=== PATIENT | male | born 1990 | race Caucasian/White ===

== ENCOUNTER 2021-11-13 11:19 | Inpatient (IN) | payer MEDICAID, SELFPAY ==
[2021-11-13] VITALS (13 sets, daily range): BP systolic 124–158; BP diastolic 73–98; PULSE 85–110; RESP 15–22; TEMP 36.6–36.8; O2SAT 93–99; BMI 36.0
--- NOTE | ~2021-11-13 | XR_ITS ---
EXAMINATION: XR chest 1V portable DATE: 11/13/2021 12:27 INDICATION: Weakness. TECHNIQUE: A single frontal view of the chest was obtained on 2 radiographs. COMPARISON: None. FINDINGS: The chest demonstrates clear lungs without pneumonia, pleural effusion, or pneumothorax. Th e heart size is normal. IMPRESSION: 1. No acute cardiopulmonary disease. Reviewed, dictated and finalized at location A.
[2021-11-13 11:25] LABS: Glucose Point of Care > 500 mg/dl (65-105)
--- NOTE | 2021-11-13 11:32 | ECG_ITS ---
Measurements Intervals We[place]ert Rate: 100 P: 56 MA: 157 QRS: 80 QRSD: 90 T: 35 QT: 337 QTc: 435 Interpretive Statements SINUS TACHYCARDIA BASELINE ARTIFACT- I, II, AVR, AVL, AVF, V1 BORDERLINE ECG Electronically Signed On 11-13-2021 12:14:40 CDT by Job Zaragoza D.O.
[2021-11-13 11:46] LABS: Basophils Absolute Auto 0.1 K/mm3 (0.0-0.1); Basophils Percent Auto 0.3 % (0.2-1.2); Eosinophils Percent Auto 0.1 % (0-4.4); Hematocrit 51.6 % (42.0-52.0); Hemoglobin 17.6 g/dL (14.0-18.0); Immature Granulocyte Absolute 0.19 K/mm3 (0.00-0.031); Lymphocytes Absolute Auto 3.13 K/mm3 (0.9-3.2); Lymphocytes Percent Auto 16.2 % (18.3-44.2); Mean Corpuscular HGB Conc 34.1 g/dl (32-36); Mean Corpuscular Hemoglobin 29.3 pg (26-34); Mean Corpuscular Volume 85.9 fl (80-100); Mean Platelet Volume 11.7 fl (7.4-10.4); Monocytes Absolute Auto 0.8 K/mm3 (0.1-0.6); Monocytes Percent Auto 3.9 % (2.6-8.5); Neutrophils Absolute Auto 15.2 K/mm3 (1.3-6.7); Neutrophils Percent Auto 78.5 % (45.5-73.1); Platelet Count Result 360 k/mm3 (150-375); Red Blood Count 6.01 M/mm3 (4.6-6.20); Red Cell Distribution Width 14.1 % (11.5-14.5); White Blood Count 19.3 K/mm3 (4.5-10.0)
--- NOTE | 2021-11-13 11:51 | ED.GENADULT ---
HPI - General Adult General Chief complaint: Unspecified Stated complaint: dry mouth, confusion, increased urination Time Seen by Provider: 11/13/21 11:36 Source: patient, family and RN notes reviewed Mode of arrival: ambulatory Limitations: no limitations History of Present Illness HPI narrative: This is a 31 year old male who presents for evaluation of frequent urination and dry mouth. He told triage that his has been dealing with dry mouth and increased urinary for several weeks. He states his mouth has been so dry over the past 2 days that he can barely talk. He reports increased thirst. He denies history of diabetes but he has not seen provider in several years. His blood sugar was found to be extremely high in triage. He reports having nausea and emesis x 1 yesterday. He has been eating popsicles and apple sauce for past 2 days due to difficulty swallowing due to dry mouth. He denies fever, chills, abdominal pain, diarrhea or chest pain. Related Data Home Medications Medication Instructions Recorded Confirmed No Home Medications 11/13/21 11/13/21 Allergies Allergy/AdvReac Type Severity Reaction Status Date / Time No Known Allergies Allergy Verified 11/13/21 11:23 Review of Systems Review of Systems: All systems reviewed & are unremarkable except as noted in HPI and below Constitutional: Constitutional: Denies body ache(s), Denies chills, Denies fever(s) and Reports malaise ENT: Denies dizziness and Reports dry mouth Gastrointestinal: Gastrointestinal: Denies abdominal pain, Reports nausea and Reports vomiting Musculoskeletal: Musculoskeletal: Reports no additional musculoskeletal complaints Integumentary/Breasts: Skin/Breast: Denies erythema and Denies sores Endocrine: Endocrine: Reports fatigue, Reports polydipsia and Reports polyuria PMFSH Past Medical History Medical History Patient denies medical problems Surgical History Surgical History History of knee surgery Family History Family History (Updated 11/13/21 @ 14:16 by Edilma Grimm, ROBINA) Sibling Asthma Mother Asthma Grandparent Prostate carcinoma Father Lung cancer Social History Social History (Updated 11/13/21 @ 14:18 by Rosette Wilkerson PA-C) Social History: Surrogate decision maker: Code status: Full code. Smoking packs per day: 1.5 Smoking cigarettes per day: 30.0 Years smoked: 20 Smoking pack-years: 30.00 Smoking status: Current every day smoker Tobacco type: cigarettes Alcohol intake: current Alcohol use details: Occasional alcohol use. Substance use: current Substance use type: marijuana Spiritual care concerns: No Exam Const: General: cooperative, no acute distress and ill appearing Nutritional Appearance: obese Orientation/consciousness: patient oriented x3 HENMT: Head: normocephalic and atraumatic Face and sinus: face symmetric Mouth: Yes lip normal and Yes dry mucous membranes Throat: uvula midline Eyes: General: appearance normal, both eyes and all related structures Chest: Chest palpation & inspection: normal inspection of the chest Resp: Effort & Inspection: normal respiratory effort and able to speak in complete sentences Auscultation: clear to auscultation bilaterally and no crackles Cardio: Jugular venous distension: no JVD Rate: regular rate Rhythm: regular rhythm Peripheral pulses: Peripheral pulses 2+ throughout GI: Inspection: distended and obesity GI Palp: Yes Soft to palpation, No Tenderness to palpation present (GI), No Guarding due to palpation present (GI) and No Rigid due to palpation Auscultation: normal bowel sounds : Penis: Yes circumcised Skin: General skin exam: normal color and no rashes or lesions noted Neuro: General: patient oriented x3 and moves all extremities Cranial nerves: Yes CN's II-XII intact bilaterally Extre
[2021-11-13] MEDS: ONDANSETRON INJ 4 MG/2 ML VIAL IV PUSH (11:57)
[2021-11-13] MEDS: SODIUM CHLORIDE 0.9% IV 1,000 ML 999 ML IV CONT ×3 (11:58→12:31)
[2021-11-13 12:06] LABS: Appearance Urine Clear (Clear); Bilirubin Urine Negative (Negative); Glucose Urine UA 2+ mg/dL (Negative); Ketones Urine 3+ mg/dL (Negative); Leukocyte Esterase Ur Negative LEU/UL (Negative); Nitrate Urine Negative (Negative); Protein Urine Negative (Negative); Urobilinogen Urine 0.2 mg/dL (<2.0); pH Urine 5.5 (5.0-9.0)
[2021-11-13 12:12] LABS: Alanine Aminotransferase 62 U/L (6-50); Albumin Level 4.8 g/dL (3.5-5.1); Alkaline Phosphatase 159 U/L (38-126); Anion Gap 26 mmol/L (8-16); Aspartate Amino Transferase 44 U/L (17-59); Bilirubin,Total 0.6 mg/dL (0.2-1.3); Blood Urea Nitrogen 22 mg/dL (9-20); Calcium 9.6 mg/dL (8.4-10.2); Carbon Dioxide 13 mmol/L (22-30); Chloride 94 mmol/L (98-107); Estimated CRCL calculation 136 ml/min; Estimated Glomerular Filt Rate > 60; Glucose 1151 mg/dL (65-110); Potassium 5.2 mmol/L (3.4-5.0); Sodium 133 mmol/L (137-145)
[2021-11-13 12:20] LABS: RBC Urine 0-2 /hpf (0-2); Squamous Epithelial Cell Urine Rare /hpf (Few); WBC Urine 0-3 /hpf
[2021-11-13 12:22] LABS: Alveolar/Arterial O2 Gradient 26.7 mmHg; Base Excess ABG -12.1 mEq/l (+/-2.0); Carboxyhemoglobin 3.2 % THb (0-2.0); Fractional Inspired Oxygen 21 %; HCO3 ABG 12.7 mEq/l (22.0-26.0); Methemoglobin ABG 0.5 %THb (0-1.5); Oxygen Content ABG 22.7 %vol (16.0-22.0); Oxygen Saturation ABG 96.1 % (95.0-100.0); Oxyhemoglobin 92.6 % THb (90.0-100.0); PCO2 ABG 27.5 mmHg (35.0-45.0); PO2 ABG 90.1 mmHg (80.0-100.0); PO2 FiO2 Ratio Arterial Blood 4.29 %; Reduced Hemoglobin 3.7 %THb (0-5.0); Total Hemoglobin 17.4 g/dL (12.0-18.0)
[2021-11-13 12:24] LABS: Lipase 88 U/L (23-300); Magnesium 2.5 mg/dL (1.6-2.3); Phosphorus 7.8 mg/dL (2.5-4.5)
[2021-11-13 12:26] LABS: Modified Allen's Test Pass; Site Drawn LEFT RADIAL; pH ABG 7.281 (7.350-7.450)
[2021-11-13 12:26] LABS: Add Urine Microscopic? YES; Blood Urine Trace-Intact (Negative); Color Urine Light Yellow (Yellow)
[2021-11-13] MEDS: INSULIN HUMAN REGULAR (*BKC) 100 UNITS/ML 13 UNITS IV PUSH (12:31)
[2021-11-13] MEDS: INSULIN HUMAN REGULAR (*BKC) 100 UNITS in SODIUM CHLORIDE 0.9% IV 99 ML 21.8 UNITS IV CONT (12:38)
[2021-11-13 12:48] LABS: Hemoglobin A1C 13.1 % (<5.7)
[2021-11-13 12:56] LABS: Glucose Point of Care > 500 mg/dl (65-105)
[2021-11-13 12:58] LABS: Beta-Hydroxybutyrate/Acetoacetate 7.49 mmol/L (0.02-0.27)
--- NOTE | 2021-11-13 13:22 | WPDCNINT ---
Assessment and Plan Assessment and plan (1) DKA (diabetic ketoacidosis): Code(s): E11.10 - Type 2 diabetes mellitus with ketoacidosis without coma Status: Acute Assessment and Plan: Patient presented with blood glucose of 1151, HbA1c of 13.1 beta hydroxybutyrate of 7.49 IVF bolus and infusion Patient started on Insulin infusion and Q1H glucose monitoring Serial labs ordered Replace electrolytes as needed Since patient denies any abdominal pain nausea vomiting at this time I will start him on clear liquid diet and advance as tolerated to diabetic (2) Leukocytosis: Code(s): D72.829 - Elevated white blood cell count, unspecified Status: Acute Assessment and Plan: Likely secondary to stress response from DKA UA and chest x-ray negative Monitor (3) Hyperkalemia: Code(s): E87.5 - Hyperkalemia Status: Acute Assessment and Plan: Secondary to dehydration and acidosis Repeat BMP ordered Additional Plan DVT prophylaxis -SCDs Code Status - Full Code Rn Angiography Consult Note Consult date: 11/13/21 Reason for consult: DKA HPI: Pepe Salguero is a 31 year old male presented with chief complaint of excessive thirst and confusion and was told by his friends that this may be a sign of diabetes. Was started around 2-3 days ago and was associated with excessive thirst dry mouth polydipsia polyuria and poor appetite. No abdominal pain nausea vomiting. No chest pain shortness of breath or cough. No Dysuria hematuria hematemesis or melena. He felt weak and tired. He denies any blurred vision. Review system was also positive for chronic knee pain in both knees and back pain from back injury many years ago. In ED patient was found to be having elevated blood sugar, white count, beta hydroxybutyrate and potassium. Patient was diagnosed with DKA. He was given IV fluid bolus and started on IV fluids and IV insulin. Now admitted to ICU for further evaluation management. Patient states that he is feeling better as compared to presentation but no other new complaints at this time. Review of Systems Review of Systems: As per HPI All systems reviewed & are unremarkable except as noted in HPI and below PMFSH Past Medical History Medical History Patient denies medical problems Surgical History Surgical History History of knee surgery Family History Family History (Updated 11/13/21 @ 14:16 by Edilma Grimm RN) Sibling Asthma Mother Asthma Grandparent Prostate carcinoma Father Lung cancer Social History Social History Smoking packs per day: 0.25 Smoking cigarettes per day: 5.0 Years smoked: 20 Smoking pack-years: 5.00 Smoking status: Current every day smoker Tobacco type: cigarettes Additional smoking assessment comments: was smoking 1.5 PPD up until a few days ago Alcohol intake: current Alcohol use details: occasionally Substance use: current Substance use type: marijuana Spiritual care concerns: No Meds Home Medications and Allergies Home Medications Medication Instructions Recorded Confirmed Type No Home Medications 11/13/21 11/13/21 History Allergies Allergy/AdvReac Type Severity Reaction Status Date / Time No Known Allergies Allergy Verified 11/13/21 11:23 Vital Signs Vital Signs - 24 hr 11/13/21 11:21 11/13/21 11:31 11/13/21 12:55 Temperature 36.8 C Pulse Rate 110 H 104 H 107 H Respiratory Rate 18 19 Blood Pressure 156/95 H 158/92 H Pulse Oximetry 98 98 Oxygen Delivery Room Air Exam Narrative: General: Pt is alert awake and in NAD Lungs/Chest: Trachea central Clear BS B/L, No crackles or wheezing. Cardiac: RRR. Normal S1 S2. No murmurs Circulation: Pedal pulses are intact and symmetrical. Abdomen: Normal bowel sounds.. Soft. NT. ND.
[2021-11-13 13:29] LABS: Anion Gap 24 mmol/L (8-16); Blood Urea Nitrogen 22 mg/dL (9-20); Calcium 9.4 mg/dL (8.4-10.2); Carbon Dioxide 12 mmol/L (22-30); Chloride 103 mmol/L (98-107); Estimated CRCL calculation 151 ml/min; Estimated Glomerular Filt Rate > 60; Glucose 878 mg/dL (65-110); Potassium 4.6 mmol/L (3.4-5.0); Sodium 139 mmol/L (137-145)
--- NOTE | 2021-11-13 14:10 | ADMGEN ---
This patient, Pepe Salguero, was admitted to Intensive Care Unit-1. Patient/family oriented to hospital policies and general routines including ID bracelet, bed and alarms, visiting hours, pain management, procedures, bathroom and other care routines, personal items, smoking policy, room service/diet, and visiting hours. Information on how to activate the Rapid Response Team has been discussed. Patient/Family are encouraged to report perceived risks to care and to ask questions if they do not understand what they are told or what they should do.
[2021-11-13 14:15] LABS: Glucose Point of Care > 500 mg/dl (65-105)
--- NOTE | 2021-11-13 14:15 | PM.IMHP ---
H&P: HPI History of Present Illness Date/Time: 11/13/21 14:15 Chief Complaint: Dry mouth and frequent urination. Narrative: This is a 31-year-old male smoker with no known medical problems who presented to the emergency department for evaluation of dry mouth and frequent urination. For the last several days he has had an extremely dry mouth and has been drinking water much more often though it has not seemed to help with the dry mouth. His friend told him that it could be a sign of diabetes and he was brought in today for evaluation. Indeed his glucose was over 1000 on arrival to the emergency department since been admitted to the ICU on an insulin drip with DKA. With further questioning he reports a 40 lb weight loss in the last 4 months or so however he tells me that he was trying to get a bit healthier and that is why he thought he was losing weight. He occasionally has tingling in his feet but that is been ongoing for a couple of years. He denies fever, chills, and sweats. No abdominal pain or epigastric pain. He did have some nausea yesterday with 1 episode of emesis but that has improved. No nonhealing wounds or concerns for yeast infections. Vision has not been blurry. Review of Systems Review of Systems: Twelve systems were reviewed. He reports being a bit confused last several days, for instance he walks into a room and then he forgets why he went into that room. No diarrhea. No dysuria. He has chronic knee pain and low back pain from an injury many years ago and that is unchanged. Except as documented, all other systems were reviewed and are negative. [facility] Past Medical History Medical History (Updated 11/13/21 @ 23:45 by Rosette Wilkerson PA-C) Nicotine abuse Surgical History Surgical History (Updated 11/13/21 @ 23:45 by Rosette Wilkerson PA-C) History of arthroscopy of both knees Family History Family History (Updated 11/13/21 @ 23:46 by Rosette Wilkerson PA-C) Sibling Asthma Mother Asthma Grandparent Prostate carcinoma Father Lung cancer Social History Social History (Updated 11/13/21 @ 23:46 by Rosette Wilkerson PA-C) Social History: Surrogate decision maker: Hermila Farias, . Code status: Full code. Smoking packs per day: 1.5 Smoking cigarettes per day: 30.0 Years smoked: 20 Smoking pack-years: 30.00 Smoking status: Current every day smoker Tobacco type: cigarettes Alcohol intake: current Alcohol use details: Occasional alcohol use. Substance use: current Substance use type: marijuana Additional living arrangements comments: The patient lives with his and 5-year-old son. Additional occupation/education comments: Not currently working. Spiritual care concerns: No Meds Home Medications and Allergies Home Medications Medication Instructions Recorded Confirmed Type No Home Medications 11/13/21 11/13/21 History Allergies Allergy/AdvReac Type Severity Reaction Status Date / Time No Known Allergies Allergy Verified 11/13/21 11:23 Vital Signs Vital Signs - 24 hr 11/13/21 11:21 11/13/21 11:31 11/13/21 12:55 Temperature 98.2 F Pulse Rate 110 H 104 H 107 H Respiratory Rate 18 19 Blood Pressure 156/95 H 158/92 H Pulse Oximetry 98 98 Oxygen Delivery Room Air 11/13/21 13:37 Temperature Pulse Rate 106 H Respiratory Rate 18 Blood Pressure 154/87 H Pulse Oximetry 96 Oxygen Delivery Exam Narrative: General: Well-developed, well-nourished male sitting up in bed in no distress. Weight: 127.3 kg. BMI: 36.0. HEENT: Normocephalic, atraumatic. PERRL, EOMI. Sclerae anicteric. Tacky mucous membranes. Multiple dental caries and several missing teeth. Neck: Supple. Respiratory: Lungs are clear to auscultation bilaterally. Cardiovascular: Regular rate and rhythm with S1-S2. Gastrointestinal: Abdomen is soft, obese, nontender, and nondistended with positive bowel sounds. Skin: Warm and dry. No rash or
[2021-11-13] MEDS: SODIUM CHLORIDE 0.9% IV 1,000 ML 150 ML IV CONT (14:22)
[2021-11-13 14:55] LABS: Anion Gap 25 mmol/L (8-16); Blood Urea Nitrogen 21 mg/dL (9-20); Calcium 9.8 mg/dL (8.4-10.2); Carbon Dioxide 14 mmol/L (22-30); Chloride 107 mmol/L (98-107); Estimated CRCL calculation 148 ml/min; Estimated Glomerular Filt Rate > 60; Potassium 4.1 mmol/L (3.4-5.0); Sodium 146 mmol/L (137-145)
[2021-11-13 15:03] LABS: Glucose 618 mg/dL (65-110)
[2021-11-13 16:14] LABS: Glucose Point of Care 350 mg/dl (65-105)
[2021-11-13] MEDS: INSULIN HUMAN REGULAR (*BKC) 100 UNITS in SODIUM CHLORIDE 0.9% IV 99 ML 14.5 UNITS IV CONT (16:43)
[2021-11-13 17:04] LABS: Glucose Point of Care 298 mg/dl (65-105)
[2021-11-13] MEDS: KCL 20 MEQ/D5/0.45% SOD CHL 1,000 ML 150 ML IV CONT (18:09)
[2021-11-13 18:16] LABS: Glucose Point of Care 246 mg/dl (65-105)
[2021-11-13 19:07] LABS: Glucose Point of Care 247 mg/dl (65-105)
[2021-11-13 19:20] LABS: Anion Gap 10 mmol/L (8-16); Blood Urea Nitrogen 16 mg/dL (9-20); Calcium 8.6 mg/dL (8.4-10.2); Carbon Dioxide 19 mmol/L (22-30); Chloride 111 mmol/L (98-107); Estimated CRCL calculation 187 ml/min; Estimated Glomerular Filt Rate > 60; Glucose 237 mg/dL (65-110); Sodium 140 mmol/L (137-145)
[2021-11-13 20:18] LABS: Glucose Point of Care 408 mg/dl (65-105)
--- NOTE | 2021-11-13 20:45 | PC.NURSE ---
2010 Dr. Arreguin informed of accuchek of 408. Orders received to increase insulin gtt to 30u/hr and follow protocol
[2021-11-13 21:10] LABS: Glucose Point of Care 234 mg/dl (65-105)
[2021-11-13] MEDS: INSULIN HUMAN REGULAR (*BKC) 100 UNITS in SODIUM CHLORIDE 0.9% IV 99 ML 11.2 UNITS IV CONT (22:42)
[2021-11-13 23:04] LABS: Anion Gap 8 mmol/L (8-16); Blood Urea Nitrogen 16 mg/dL (9-20); Calcium 8.6 mg/dL (8.4-10.2); Carbon Dioxide 20 mmol/L (22-30); Chloride 110 mmol/L (98-107); Estimated CRCL calculation 215 ml/min; Estimated Glomerular Filt Rate > 60; Glucose 161 mg/dL (65-110); Sodium 138 mmol/L (137-145)
[2021-11-13 23:08] LABS: Glucose Point of Care 198 mg/dl (65-105)
[2021-11-13 23:08] LABS: Glucose Point of Care 172 mg/dl (65-105)
[2021-11-14] VITALS (10 sets, daily range): BP systolic 121–150; BP diastolic 62–87; PULSE 63–94; RESP 16–19; TEMP 35.7–36.8; O2SAT 97–99; BMI 37.1
[2021-11-14 00:04] LABS: Glucose Point of Care 160 mg/dl (65-105)
[2021-11-14 01:09] LABS: Glucose Point of Care 162 mg/dl (65-105)
[2021-11-14 02:03] LABS: Glucose Point of Care 182 mg/dl (65-105)
[2021-11-14 03:04] LABS: Glucose Point of Care 160 mg/dl (65-105)
[2021-11-14] MEDS: INSULIN GLARGINE (*BKC) 100 UNITS/ML 42 UNITS SUB-Q (03:20)
--- NOTE | 2021-11-14 03:29 | PC.NURSE ---
0309 Dr Timmons updated on patients blood glucose and insulin gtt. Orders received.
[2021-11-14 05:39] LABS: Hematocrit 46.2 % (42.0-52.0); Hemoglobin 15.8 g/dL (14.0-18.0); Mean Corpuscular HGB Conc 34.2 g/dl (32-36); Mean Corpuscular Hemoglobin 28.8 pg (26-34); Mean Corpuscular Volume 84.3 fl (80-100); Platelet Count Result 260 k/mm3 (150-375); Red Blood Count 5.48 M/mm3 (4.6-6.20); Red Cell Distribution Width 13.7 % (11.5-14.5); White Blood Count 16.3 K/mm3 (4.5-10.0)
[2021-11-14 05:45] LABS: Alanine Aminotransferase 51 U/L (6-50); Albumin Level 3.5 g/dL (3.5-5.1); Alkaline Phosphatase 106 U/L (38-126); Anion Gap 8 mmol/L (8-16); Aspartate Amino Transferase 46 U/L (17-59); Bilirubin,Total 0.8 mg/dL (0.2-1.3); Blood Urea Nitrogen 15 mg/dL (9-20); Calcium 8.8 mg/dL (8.4-10.2); Carbon Dioxide 19 mmol/L (22-30); Chloride 112 mmol/L (98-107); Estimated CRCL calculation 187 ml/min; Estimated Glomerular Filt Rate > 60; Glucose 202 mg/dL (65-110); Phosphorus 3.7 mg/dL (2.5-4.5); Potassium 4.2 mmol/L (3.4-5.0); Sodium 139 mmol/L (137-145)
[2021-11-14 08:07] LABS: Glucose Point of Care 350 mg/dl (65-105)
--- NOTE | 2021-11-14 08:37 | WPDINTPN ---
Progress Note: A&P Assessment and Plan (1) DKA (diabetic ketoacidosis): Code(s): E11.10 - Type 2 diabetes mellitus with ketoacidosis without coma Status: Acute Assessment and Plan: Patient presented with blood glucose of 1151, HbA1c of 13.1 beta hydroxybutyrate of 7.49 patient was treated with IVF bolus and infusion Patient was started on Insulin infusion and Q1H glucose monitoring Serial labs were done his anion gap has closed and he will be transitioned to subcutaneous Lantus and with meal insulin.SSI also ordered tolerating p.o. diet health promotion educator consulted (2) Leukocytosis: Code(s): D72.829 - Elevated white blood cell count, unspecified Status: Acute Assessment and Plan: Likely secondary to stress response from DKA UA and chest x-ray negative improving. Monitor (3) Hyperkalemia: Code(s): E87.5 - Hyperkalemia Status: Acute Assessment and Plan: Secondary to dehydration and acidosis resolved Additional Plan DVT prophylaxis -SCDs Code Status - Full Code incentive spirometry, up in chair, transfer out of ICU Subjective Date/time seen: 11/14/21 08:37 Patient states that he feels better this morning. Denies any new complaints. He tolerated p.o. diet. Patient denies fever, chest pain, shortness of breath, cough, nausea vomiting, abdominal pain,, diarrhea, headache or constipation. All other systems were reviewed and were negative Review of Systems Review of Systems: All systems reviewed & are unremarkable except as noted in HPI and below Exam Narrative: General: Pt is alert awake and in NAD Lungs/Chest: Trachea central Clear BS B/L, No crackles or wheezing. Cardiac: RRR. Normal S1 S2. No murmurs Circulation: Pedal pulses are intact and symmetrical. Abdomen: Normal bowel sounds.. Soft. NT. ND. Extremities: No clubbing, cyanosis or edema. Warm : [place] in place Neurologic: Follows commands. Moves all 4 extremities PERRL Skin: No Rash HEENT: Poor dentition with several teeth missing Objective Data Vital Signs Vital Signs: Vital Signs - 24 hr 11/13/21 11:21 11/13/21 11:31 11/13/21 12:55 Temperature 36.8 C Pulse Rate 110 H 104 H 107 H Respiratory Rate 18 19 Blood Pressure 156/95 H 158/92 H Pulse Oximetry 98 98 Oxygen Delivery Room Air 11/13/21 13:37 11/13/21 14:00 11/13/21 14:15 Temperature Pulse Rate 106 H 102 H 104 H Respiratory Rate 18 15 Blood Pressure 154/87 H 143/98 H Pulse Oximetry 96 99 Oxygen Delivery 11/13/21 14:57 11/13/21 16:00 11/13/21 16:00 Temperature Pulse Rate 94 Respiratory Rate Blood Pressure Pulse Oximetry Oxygen Delivery Room Air Room Air 11/13/21 16:00 11/13/21 18:00 11/13/21 18:00 Temperature 36.6 C Pulse Rate 97 85 87 Respiratory Rate 22 H 18 Blood Pressure 124/73 124/79 Pulse Oximetry 95 95 Oxygen Delivery 11/13/21 19:45 11/13/21 20:00 11/13/21 20:00 Temperature 36.7 C Pulse Rate 86 89 Respiratory Rate 18 Blood Pressure 131/76 Pulse Oximetry 97 Oxygen Delivery Room Air 11/13/21 22:00 11/13/21 22:00 11/13/21 23:20 Temperature Pulse Rate 90 90 89 Respiratory Rate 18 Blood Pressure 127/81 Pulse Oximetry 95 93 Oxygen Delivery Room Air 11/13/21 23:49 11/13/21 23:49 11/14/21 00:00 Temperature 36.6 C Pulse Rate 88 94 Respiratory Rate 18 Blood Pressure 121/83 Pulse Oximetry 97 Oxygen Delivery Room Air 11/14/21 02:00 11/14/21 02:00 11/14/21 04:00 Temperature Pulse Rate 87 87 78 Respiratory Rate 18 Blood Pressure 128/87 Pulse Oximetry 97 Oxygen Delivery 11/14/21 04:00 11/14/21 04:00 11/14/21 06:00 Temperature 36.8 C Pulse Rate 86 76 Respiratory Rate 18 Blood Pressure 135/84 Pulse Oximetry 97 Oxygen Delivery Room Air 11/14/21 06:00 11/14/21 08:00 11/14/21 08:00 Temperature 36.8 C Pulse Rate 76 72 Respiratory Rate 18 19 Blood Pressure 136/87
[2021-11-14] MEDS: INSULIN ASPART (*BKC) 100 UNITS/ML SUB-Q ×3 (09:06→16:52)
--- NOTE | 2021-11-14 09:47 | PM.IMPN ---
Progress Note: A&P Assessment and Plan (1) DKA (diabetic ketoacidosis): Code(s): E11.10 - Type 2 diabetes mellitus with ketoacidosis without coma Status: Acute (2) Leukocytosis: Code(s): D72.829 - Elevated white blood cell count, unspecified Status: Acute (3) Hyperkalemia: Code(s): E87.5 - Hyperkalemia Status: Acute Plan Patient presented to the ED with complaints of frequent urination and dry mouth. He was found to have a blood glucose of 1151, HbA1c of 13.1, beta hydroxybutyrate of 7.49, pH 7.28 and metabolic gap acidosis with gap of 26 consistent with DKA. Patient was started on DKA protocol with IVF and insulin infusion. Serial labs were performed and his anion gap closed. Potassium elevation related to above and has normalized. He was transitioned to subcutaneous Lantus and with meal insulin. SSI also ordered. Tolerating p.o. diabetic diet. WBC elevated felt related to DKA and not infection. UA and chest x-ray negative. Canine Enforcement Officer and critical care educator consulted. he has no insurance so will change to 75/25. Will provide meter. Check for Type I DM. DVT prophylaxis -SCDs Code Status - Full Code Subjective Date/time seen: 11/14/21 09:47 Interval history: 31yo male with tobacco abuse here for weakness and found to have DKA. Patient states he has had a few weeks of symptoms prior to admission here. No family history of diabetes with the exception of maybe a grandmother. No family history of autoimmune disorders that he is aware of. No chest pain, shortness of breath or cough. Smokes 1.5-2 packs per day but has cut back due to his recent illness. Exam Narrative: AF 98.3 129/69 73 19 99% ra Gen - NARD HEENT - Poor dentition with several teeth missing Chest - CTA bilaterally, nml RR CV - RRR S1/S2.Tele showing significant dysrhythmias. Abd - Soft, NT/ND, Positive BS Ext - No pedal edema. 2+ DP pulses bilaterally. no Skin breakdown or sores noted his feet. Neuro - Alert and oriented. Nonfocal exam. Psych - Nml mood and affect Skin - Warm and dry Objective Data Vital Signs Vital Signs: Vital Signs - 24 hr 11/13/21 11:21 11/13/21 11:31 11/13/21 12:55 Temperature 98.2 F Pulse Rate 110 H 104 H 107 H Respiratory Rate 18 19 Blood Pressure 156/95 H 158/92 H Pulse Oximetry 98 98 Oxygen Delivery Room Air 11/13/21 13:37 11/13/21 14:00 11/13/21 14:15 Temperature Pulse Rate 106 H 102 H 104 H Respiratory Rate 18 15 Blood Pressure 154/87 H 143/98 H Pulse Oximetry 96 99 Oxygen Delivery 11/13/21 14:57 11/13/21 16:00 11/13/21 16:00 Temperature Pulse Rate 94 Respiratory Rate Blood Pressure Pulse Oximetry Oxygen Delivery Room Air Room Air 11/13/21 16:00 11/13/21 18:00 11/13/21 18:00 Temperature 97.9 F Pulse Rate 97 85 87 Respiratory Rate 22 H 18 Blood Pressure 124/73 124/79 Pulse Oximetry 95 95 Oxygen Delivery 11/13/21 19:45 11/13/21 20:00 11/13/21 20:00 Temperature 98.1 F Pulse Rate 86 89 Respiratory Rate 18 Blood Pressure 131/76 Pulse Oximetry 97 Oxygen Delivery Room Air 11/13/21 22:00 11/13/21 22:00 11/13/21 23:20 Temperature Pulse Rate 90 90 89 Respiratory Rate 18 Blood Pressure 127/81 Pulse Oximetry 95 93 Oxygen Delivery Room Air 11/13/21 23:49 11/13/21 23:49 11/14/21 00:00 Temperature 97.9 F Pulse Rate 88 94 Respiratory Rate 18 Blood Pressure 121/83 Pulse Oximetry 97 Oxygen Delivery Room Air 11/14/21 02:00 11/14/21 02:00 11/14/21 04:00 Temperature Pulse Rate 87 87 78 Respiratory Rate 18 Blood Pressure 128/87 Pulse Oximetry 97 Oxygen Delivery 11/14/21 04:00 11/14/21 04:00 11/14/21 06:00 Temperature 98.2 F Pulse Rate 86 76 Respiratory Rate 18 Blood Pressure 135/84 Pulse Oximetry 97 Oxygen Delivery Room Air 11/14/21 06:00 11/14/21 08:00 11/14/21 08:00 Temperature 98.3 F Pulse Rate 76 72 Respira
--- NOTE | 2021-11-14 11:23 | PCDIET ---
Dietitian consult for DKA. See Nutritional Teaching Intervention. Thank you for the consult.
[2021-11-14 12:00] LABS: Glucose Point of Care 413 mg/dl (65-105)
[2021-11-14] MEDS: INSULIN ASPART (*BKC) 100 UNITS/ML 6 UNITS SUB-Q (13:03)
--- NOTE | 2021-11-14 15:13 | PC.NURSE ---
Report given at 1511 to ROBINA Faria with 3 med-surg. Patient to go to room 303.
[2021-11-14 16:20] LABS: Glucose Point of Care 424 mg/dl (65-105)
[2021-11-14] MEDS: INSULIN ASPART MIX 70/30 100 UNITS/ML 20 UNITS SUB-Q (17:16)
[2021-11-14 18:13] LABS: Glucose Point of Care 440 mg/dl (65-105)
[2021-11-14 20:27] LABS: Glucose Point of Care 415 mg/dl (65-105)
[2021-11-14] MEDS: INSULIN ASPART (*BKC) 100 UNITS/ML 8 UNITS SUB-Q (20:34)
[2021-11-14] MEDS: TOLNAFTATE 1% POWDER 45 GM BTL 1 APPLIC TOPICAL (20:34)
[2021-11-14 22:26] LABS: Glucose Point of Care 320 mg/dl (65-105)
[2021-11-15 05:14] VITALS: O2SAT 95
[2021-11-15 05:56] LABS: Glucose Point of Care 338 mg/dl (65-105)
[2021-11-15 06:00] VITALS: BP 120/73; PULSE 71; RESP 18; TEMP 36.2; O2SAT 98
[2021-11-15] MEDS: INSULIN ASPART MIX 70/30 100 UNITS/ML 40 UNITS SUB-Q (06:06)
[2021-11-15 07:42] LABS: Hematocrit 43.8 % (42.0-52.0); Hemoglobin 14.8 g/dL (14.0-18.0); Mean Corpuscular HGB Conc 33.8 g/dl (32-36); Mean Corpuscular Hemoglobin 28.4 pg (26-34); Mean Corpuscular Volume 84.1 fl (80-100); Mean Platelet Volume 10.9 fl (7.4-10.4); Platelet Count Result 226 k/mm3 (150-375); Red Blood Count 5.21 M/mm3 (4.6-6.20); Red Cell Distribution Width 13.4 % (11.5-14.5); White Blood Count 10.4 K/mm3 (4.5-10.0)
[2021-11-15 07:52] LABS: Alanine Aminotransferase 50 U/L (6-50); Albumin Level 3.2 g/dL (3.5-5.1); Alkaline Phosphatase 81 U/L (38-126); Anion Gap 8 mmol/L (8-16); Aspartate Amino Transferase 48 U/L (17-59); Bilirubin,Total 0.6 mg/dL (0.2-1.3); Blood Urea Nitrogen 14 mg/dL (9-20); Calcium 8.2 mg/dL (8.4-10.2); Carbon Dioxide 20 mmol/L (22-30); Chloride 106 mmol/L (98-107); Estimated CRCL calculation 221 ml/min; Estimated Glomerular Filt Rate > 60; Glucose 274 mg/dL (65-110); Phosphorus 3.5 mg/dL (2.5-4.5); Potassium 3.6 mmol/L (3.4-5.0); Sodium 134 mmol/L (137-145)
[2021-11-15 08:07] LABS: Glucose Point of Care 299 mg/dl (65-105)
[2021-11-15] MEDS: INSULIN ASPART (*BKC) 100 UNITS/ML SUB-Q (08:30)
[2021-11-15] MEDS: TOLNAFTATE 1% POWDER 45 GM BTL 1 APPLIC TOPICAL (09:26)
--- NOTE | 2021-11-15 11:29 | PM.DS ---
DS: Admitting Diagnosis Discharge Date 11/15/21 Admitting Diagnosis Frequent urination, nausea DS: Discharge Diagnosis Discharge Diagnosis (1) DKA (diabetic ketoacidosis): Code(s): E11.10 - Type 2 diabetes mellitus with ketoacidosis without coma Status: Acute (2) Hyperkalemia: Code(s): E87.5 - Hyperkalemia Status: Acute (3) Leukocytosis: Code(s): D72.829 - Elevated white blood cell count, unspecified Status: Acute (4) New onset type 2 diabetes mellitus: Code(s): E11.9 - Type 2 diabetes mellitus without complications Status: Acute (5) Nicotine abuse: Code(s): Z72.0 - Tobacco use Status: Acute DS: Summary Hospital Course Reason for hospitalization: 31yo male with tobacco abuse here for weakness and found to have DKA. Please se H&P for details Hospital Course: Patient presented to the ED with complaints of frequent urination and dry mouth. He was found to have a blood glucose of 1151, HbA1c of 13.1, beta hydroxybutyrate of 7.49, pH 7.28 and metabolic gap acidosis with gap of 26 consistent with DKA. Patient was started on DKA protocol with IVF and insulin infusion. Serial labs were performed and his anion gap closed. Potassium elevation related to above and normalized. He was transitioned to subcutaneous Lantus and with meal insulin. SSI also ordered. Lab work to exclude Type I DM ordered. Tolerating p.o. diabetic diet. WBC elevated felt related to DKA and not infection. WBC dropped to close to normal. UA and chest x-ray negative. [employer] and assistant health educator were consulted. Patient does not have insurance so he was changed to 70/30. Information about financial assistance and about establishing with a primary care provider. He was educated about the benefits of smoking cessation. Status at Discharge Cognitive/behavioral status at discharge: Stable Time Spent with Patient Time attestation: Total time spent providing and/or coordinating discharge services: 34 minutes Time spent: Greater than 30 minutes Exam Narrative: AF 97.2 120/73 71 18 98% ra Gen - NARD HEENT - Poor dentition with several teeth missing Chest - CTA bilaterally, nml RR CV - RRR S1/S2 Abd - Soft, NT/ND, Positive BS Ext - No pedal edema. Psych - Nml mood and affect Skin - Warm and dry DS: Data Data Completed and Pending Labs on day of discharge: Labs from last 24 hours 11/15/21 11/15/21 11/15/21 07:59 07:25 07:25 WBC 10.4 H RBC 5.21 Hgb 14.8 Hct 43.8 MCV 84.1 MCH 28.4 MCHC 33.8 RDW 13.4 Plt Count 226 MPV 10.9 H Sodium 134 L Potassium 3.6 Chloride 106 Carbon Dioxide 20 L Anion Gap 8 BUN 14 Creatinine 0.60 L Estim Creat Clear Calc 221 Estimated GFR > 60 Glucose 274 H POC Capillary Glucose 299 H Calcium 8.2 L Phosphorus 3.5 Magnesium 2.0 Total Bilirubin 0.6 AST 48 ALT 50 Alkaline Phosphatase 81 Total Protein 6.0 L Albumin 3.2 L 11/15/21 11/14/21 11/14/21 05:53 22:23 20:12 WBC RBC Hgb Hct MCV MCH MCHC RDW Plt Count MPV Sodium Potassium Chloride Carbon Dioxide Anion Gap BUN Creatinine Estim Creat Clear Calc Estimated GFR Glucose POC Capillary Glucose 338 H 320 H 415 H Calcium Phosphorus Magnesium Total Bilirubin AST ALT Alkaline Phosphatase Total Protein Albumin 11/14/21 11/14/21 11/14/21 18:10 16:14 11:53 WBC RBC Hgb Hct MCV MCH MCHC RDW Plt Count MPV Sodium Potassium Chloride Carbon Dioxide Anion Gap BUN Creatinine Estim Creat Clear Calc Estimated GFR Glucose POC Capillary Glucose 440 H 424 H 413 H Calcium Phosphorus Magnesium Total Bilirubin AST ALT Alkaline Phosphatase Total Protein Albumin Discharge Plan Disc
[2021-11-17 18:35] LABS: Glutamic acid decarboxylase AA <5 IU/mL (<5)
[2021-11-21 22:46] LABS: Islet Cell Antibody Screen NEGATIVE (NEGATIVE)
--- NOTE | 2021-11-22 07:34 | PC.NURSE ---
Glutamic acid- WNL at <5 Islet Cell Ab is negative. Dr. Poole is aware.
[2021-11-22 15:53] LABS: Zinc Transporter 8 Antibody <10 U/mL (<15)
--- NOTE | 2021-11-23 08:34 | PC.NURSE ---
Glutamic acid- WNL at <5 Insulin auto antibody- WNL <0.4 Islet Cell Ab- negative Zinc transporter 8 Ab- WNL at <10 Dr. Zulema rutherford.
== END 2021-11-15 12:50 | disposition home or self-care (01) | DRG 420 ==
LOC: ANHED 13:03 → ANHICU 13:12 → ANH3MEDSUR 11-14 15:18
PROVIDERS: Internal Medicine; Admitting Provider Internal Medicine; Emergency Provider General Practice; Visit Provider Internal Medicine
DX: E11.10 Type 2 diabetes mellitus with ketoacidosis without coma (principal); E87.5 Hyperkalemia; D72.829 Elevated white blood cell count, unspecified; E86.0 Dehydration; F17.210 Nicotine dependence, cigarettes, uncomplicated
CPT/HCPCS: 36415; 36600; 71045; 80048; 80053; 81001; 82010; 82375; 82805; 82948; 83036; 83050; 83690; 83735; 84100; 85025; 85027; 86337; 86341; 93005; 96365; 96375; 99285; A9270; J1815; J2405; J3480; J7030

== ENCOUNTER 2022-12-30 15:23 | Outpatient (CLI) | payer OTHER, SELFPAY ==
[2022-12-30 15:34] LABS: Basophils Absolute Auto 0.1 K/mm3 (0.0-0.1); Basophils Percent Auto 0.8 % (0.2-1.2); Eosinophils Absolute Auto 0.2 K/mm3 (0-0.3); Hematocrit 47.9 % (42.0-52.0); Hemoglobin 16.2 g/dL (14.0-18.0); Immature Granulocyte Absolute 0.03 K/mm3 (0.00-0.031); Immature Granulocyte Percent A 0.3 % (0-0.5); Lymphocytes Absolute Auto 4.87 K/mm3 (0.9-3.2); Lymphocytes Percent Auto 47.9 % (18.3-44.2); Mean Corpuscular HGB Conc 33.8 g/dl (32-36); Mean Corpuscular Hemoglobin 28.3 pg (26-34); Mean Corpuscular Volume 83.6 fl (80-100); Mean Platelet Volume 9.6 fl (7.4-10.4); Monocytes Absolute Auto 0.7 K/mm3 (0.1-0.6); Monocytes Percent Auto 6.7 % (2.6-8.5); Neutrophils Absolute Auto 4.3 K/mm3 (1.3-6.7); Neutrophils Percent Auto 42.3 % (45.5-73.1); Platelet Count Result 240 k/mm3 (150-375); Red Blood Count 5.73 M/mm3 (4.6-6.20); Red Cell Distribution Width 12.9 % (11.5-14.5); White Blood Count 10.2 K/mm3 (4.5-10.0)
[2022-12-30 16:23] LABS: Alanine Aminotransferase 28 U/L (6-50); Albumin Level 4.4 g/dL (3.5-5.1); Alkaline Phosphatase 57 U/L (38-126); Anion Gap 7 mmol/L (8-16); Aspartate Amino Transferase 24 U/L (17-59); Bilirubin,Total 0.3 mg/dL (0.2-1.3); Blood Urea Nitrogen 14 mg/dL (9-20); Calcium 9.2 mg/dL (8.4-10.2); Carbon Dioxide 26 mmol/L (22-30); Chloride 104 mmol/L (98-107); Estimated Glomerular Filt Rate > 60; Glucose 100 mg/dL (65-110); Sodium 137 mmol/L (137-145)
[2023-01-02 14:32] LABS: Erythropoietin (EPO) 8.5 mIU/mL (2.6-18.5)
== END 2022-12-30 15:24 | disposition home or self-care (01) ==
LOC: ANHLAB 15:24
PROVIDERS: Visit Provider Internal Medicine Hematology & Oncology
DX: D75.1 Secondary polycythemia (principal)
CPT/HCPCS: 36415; 80053; 82668; 85025

== ENCOUNTER 2023-05-19 08:59 | Outpatient (CLI) | payer OTHER, SELFPAY ==
[2023-05-19 09:19] LABS: Basophils Percent Auto 0.4 % (0.2-1.2); Eosinophils Absolute Auto 0.1 K/mm3 (0-0.3); Eosinophils Percent Auto 1.3 % (0-4.4); Hematocrit 48.8 % (42.0-52.0); Hemoglobin 16.9 g/dL (14.0-18.0); Immature Granulocyte Absolute 0.02 K/mm3 (0.00-0.031); Immature Granulocyte Percent A 0.2 % (0-0.5); Lymphocytes Absolute Auto 4.22 K/mm3 (0.9-3.2); Lymphocytes Percent Auto 45.1 % (18.3-44.2); Mean Corpuscular HGB Conc 34.6 g/dl (32-36); Mean Corpuscular Volume 83.8 fl (80-100); Mean Platelet Volume 10.1 fl (7.4-10.4); Monocytes Absolute Auto 0.5 K/mm3 (0.1-0.6); Monocytes Percent Auto 4.9 % (2.6-8.5); Neutrophils Absolute Auto 4.5 K/mm3 (1.3-6.7); Neutrophils Percent Auto 48.1 % (45.5-73.1); Platelet Count Result 213 k/mm3 (150-375); Red Blood Count 5.82 M/mm3 (4.6-6.20); Red Cell Distribution Width 13.1 % (11.5-14.5); White Blood Count 9.4 K/mm3 (4.5-10.0)
== END 2023-05-19 09:00 | disposition home or self-care (01) ==
LOC: ANHLAB 09:01
PROVIDERS: Visit Provider Internal Medicine Hematology & Oncology
DX: D75.1 Secondary polycythemia (principal)
CPT/HCPCS: 36415; 85025

== ENCOUNTER 2023-08-18 09:46 | Outpatient (CLI) | payer OTHER, SELFPAY ==
[2023-08-18 10:02] LABS: Mean Corpuscular HGB Conc 34.7 g/dl (32-36); Mean Corpuscular Hemoglobin 29.3 pg (26-34); Mean Corpuscular Volume 84.5 fl (80-100); Mean Platelet Volume 9.8 fl (7.4-10.4); Platelet Count Result 214 k/mm3 (150-375); Red Cell Distribution Width 13.1 % (11.5-14.5); White Blood Count 9.5 K/mm3 (4.5-10.0)
== END 2023-08-18 09:47 | disposition home or self-care (01) ==
LOC: ANHLAB 09:47
PROVIDERS: Nurse Practitioner Family; Visit Provider Internal Medicine Hematology & Oncology
DX: D75.1 Secondary polycythemia (principal)
CPT/HCPCS: 36415; 85027

== ENCOUNTER 2024-03-23 09:38 | Outpatient (CLI) | payer OTHER, SELFPAY ==
[2024-03-23 11:00] LABS: Alanine Aminotransferase 20 U/L (6-50); Albumin Level 4.6 g/dL (3.5-5.1); Alkaline Phosphatase 63 U/L (38-126); Anion Gap 9 mmol/L (4-12); Aspartate Amino Transferase 23 U/L (17-59); Bilirubin,Total 0.6 mg/dL (0.2-1.3); Blood Urea Nitrogen 15 mg/dL (9-20); Calcium 9.3 mg/dL (8.4-10.2); Carbon Dioxide 23 mmol/L (22-30); Chloride 106 mmol/L (98-107); Cholesterol 196 mg/dL (0-200); Estimated Glomerular Filt Rate > 60; Glucose 102 mg/dL (65-110); HDL Direct 33 mg/dL; Sodium 138 mmol/L (137-145); Triglycerides 150 mg/dL (<150)
[2024-03-23 11:09] LABS: Creatinine Urine 127.5 mg/dL
[2024-03-23 11:11] LABS: LDL Cholesterol Direct 129 mg/dL
[2024-03-23 11:13] LABS: Microalbumin Urine Random 10.2 mg/L (0-16.7)
[2024-03-23 12:04] LABS: Hemoglobin A1C 5.5 % (<5.7)
== END 2024-03-23 09:39 | disposition home or self-care (01) ==
PROVIDERS: PCP Nurse Practitioner Family; Visit Provider Nurse Practitioner Family
DX: Z13.220 Encounter for screening for lipoid disorders (principal); E11.9 Type 2 diabetes mellitus without complications; D75.1 Secondary polycythemia; Z68.34 Body mass index [BMI] 34.0-34.9, adult
CPT/HCPCS: 36415; 80053; 80061; 82043; 83036